=== PATIENT | female | born 2000 | race Caucasian/White ===

== ENCOUNTER 2022-07-08 18:29 | Emergency (ER) | payer OTHER ==
[~2022-07-08] VITALS: Ht 165.1 cm; Wt 68.2 kg
[2022-07-08 18:34] VITALS: TEMP 98.1
[2022-07-08] MEDS ORDERED: AMOXICILLIN 8751 TAB PO (20:03)
[2022-07-08 20:09] VITALS: BP 116/85; PULSE 75
== END 2022-07-08 20:15 | disposition home or self-care (01) ==
LOC: COL.ER 18:29
DX: S51.812A Laceration without foreign body of left forearm, initial encounter (principal); W54.0XXA Bitten by dog, initial encounter